=== PATIENT | female | born 1995 | race Caucasian/White ===

== ENCOUNTER 2016-07-30 21:29 | Inpatient (IN) ==
[2016-07-30 22:01] LABS: URINE SOURCE CLEAN CATCH
[2016-07-30 22:28] LABS: MANUAL DIFF NEEDED? NO
[2016-07-30 22:32] LABS: BASO% 0.1 % (0.0-0.8); EOS# 0.09 X1000 (0.0-0.7); EOS% 0.5 % (0.0-10.0); HEMATOCRIT 42.2 % (37.0-47.0); HEMOGLOBIN 14.2 g/dL (12.0-16.0); IMM GRAN# 0.05 X1000 (0.0-0.04); IMM GRAN% 0.3 % (0.0-0.5); LYMPH# 2.06 X1000 (1.2-3.4); LYMPH% 11.6 % (20.5-51.1); MCH 29.6 PG (27-31); MCHC 33.6 g/dL (33-37); MCV 88.1 FL (81-99); MONO# 1.05 X1000 (0.11-0.59); MONO% 5.9 % (1.7-9.3); MPV 10.2 FL (7.4-10.4); NEUT% 81.6 % (42.2-75.2); PLT 383 X1000 (130-400); RBC 4.79 XMIL (4.2-5.4)
[2016-07-30 22:35] LABS: URINE MICRO REVIEW NEEDED? YES
[2016-07-30 22:45] LABS: BILIRUBIN URINE SMALL (NEGATIVE); BLOOD URINE NEGATIVE (NEGATIVE); COLOR YELLOW; GLUCOSE URINE NEGATIVE (NEGATIVE); LEUKOCYTES URINE NEGATIVE (NEGATIVE); NITRITE URINE NEGATIVE (NEGATIVE); PH URINE 6.5; PROTEIN URINE 100 mg/dL (NEGATIVE); TURBIDITY URINE HAZY (CLEAR); UR EPITHELIAL CELLS >10 /HPF (<10); URINE BACTERIA 1+ /HPF; URINE RBC <10 /HPF (<10); URINE WBC <10 /HPF (<10); UROBILINOGEN URINE 8 mg/dL (NORMAL)
[2016-07-30 22:47] LABS: URINE CASTS NONE SEEN; URINE CRYSTALS CA OXALATE PRESENT; URINE CULTURE NEEDED? YES; URINE SMALL ROUND CELLS NONE SEEN
[2016-07-30 22:52] LABS: AGAP 10; ALBUMIN 4.5 g/dL (3.5-5.0); ALKALINE PHOSPHATASE 55 U/L (32-104); AMYLASE 38 U/L (20-200); BUN 11 mg/dL (8-22); CALCIUM 9.2 mg/dL (8.8-10.2); CHLORIDE 100 mmol/L (98-107); COSMO 274; GOT 17 U/L (10-30); GPT 10 U/L (10-36); LIPASE 21 U/L (13-60); SODIUM 138 mmol/L (136-145); TCO2 28 mmol/L (25-35); TOTAL BILIRUBIN 0.37 mg/dL (0.20-1.00)
[2016-07-30 23:09] LABS: SP GRAVITY URINE > 1.030
[2016-07-31] MEDS ORDERED: ZOFRAN IV PRN (00:32)
[2016-07-31] MEDS: MORPHINE IV PRN ×2 (02:49→10:35)
--- NOTE | 2016-07-31 07:37 | Diag Imaging Result Document ---
PROCEDURE NAME: CT ABD/PELVIS W/ IV CONT ONLY - 07/30/2016 CT ABDOMEN AND PELVIS WITH INTRAVENOUS CONTRAST: A CT dose reduction protocol was used. COMPARISON: None. FINDINGS: The lung bases are clear and the heart size is normal. The liver, gallbladder, spleen, pancreas, adrenals, and kidneys are normal. The vermiform appendix measures 6.2 mm which is grossly normal. No inflammatory changes. Urinary bladder, uterus, and rectum are normal. Bony structures are intact. IMPRESSION: Negative exam. MTDD
--- NOTE | 2016-07-31 07:39 | HISTORY AND PHYSICAL ---
HISTORY OF PRESENT ILLNESS: Ms. Cyndy Michel is a 21-year-old, white female who presented to our emergency department last night with a 24-48 hour history of abdominal pain which is localized to her right lower quadrant. The pain became more severe and that caused her to present to the emergency department for further evaluation. PAST MEDICAL HISTORY: None. MEDICATIONS: None. ALLERGIES: None. SOCIAL HISTORY: She lives here locally. [place] looking [place] job[place] She [place] no family locally. REVIEW OF SYSTEMS: A 14-point review of systems was performed and was essentially negative. FAMILY HISTORY: Noncontributory. PHYSICAL EXAMINATION: VITAL SIGNS: Her temperature is 98.2 degrees, heart rate 75, blood pressure 100/62, O2 saturation 99%. She is 160 pounds, and is 5 feet 3 inches. GENERAL APPEARANCE: Ms. Michel appears to be a healthy young white female in no acute distress. HEENT: No jaundice. No oral lesions. Satisfactory dentition. No cervical or lymphadenopathy. HEART: Has a regular rate. LUNGS: Clear to auscultation and percussion bilaterally. ABDOMEN: Soft. She has no scars. No evidence of hernia. She is tender in the right lower quadrant. She has right-sided costovertebral tenderness. RECTAL/VAGINAL: Exams not performed. She does have palpable peripheral pulses. No peripheral edema. NEUROLOGICAL: She is alert and oriented x3 and appropriate. DIAGNOSTIC DATA: A CT scan performed during part of her evaluation in the emergency department documented a phlebolith involving her appendix. Her white blood cell count was 17. Electrolytes were within normal limits. IMPRESSION: Acute appendicitis. PLAN: Laparoscopic, possible open appendectomy this morning. I discussed the procedure in detail with the patient at the bedside. She had no family present. We specifically discussed risks of surgery which include bleeding, infection, injury to intra-abdominal contents for trocar placement, removal of a normal appendix, leakage from the appendiceal stump requiring reoperation for drainage of infection, ruptured appendix requiring prolonged hospitalization. She understands the need for surgery and its risks and wants to proceed. cc: Wnedy Young MD
[2016-07-31] MEDS: ZOSYN 3.375 GM/NS 3.375 GM/50 ML IVPB IV SCH ×3 (07:43→21:23)
[2016-07-31] MEDS ORDERED: LR 1,000 ML ONE (07:55)
[2016-07-31] MEDS ORDERED: MARCAINE 0.25% PF/EPI 1:200,000 ONE (07:55)
[2016-07-31] MEDS ORDERED: REGLAN ONE (08:00)
[2016-07-31] MEDS ORDERED: PEPCID ONE (08:00)
--- NOTE | 2016-07-31 09:47 | OPERATIVE NOTE ---
PROCEDURE DATE: 07/31/2016 DATE OF OPERATION: 07/31/2016. PREOPERATIVE DIAGNOSIS: Acute appendicitis. POSTOPERATIVE DIAGNOSIS: Acute appendicitis. PRINCIPAL PROCEDURE: Laparoscopic appendectomy. SURGEON: Wendy Young MD SCREEN ROLLER: Donald Carbajal RN. ANESTHESIA: General, in addition to local anesthetic. ESTIMATED BLOOD LOSS: 20 mL. DRAINS: None. INDICATIONS: Ms Cyndy Michel is a 21-year-old, white female, who had a 24 hour history of abdominal pain localizing to her right lower quadrant. She was evaluated in our emergency department during the night, which included a CT scan of her abdomen and pelvis which suggested acute appendicitis, as did her exam. She was admitted to my service and this morning we recommended appendectomy. FINDINGS: Her appendix was acutely inflamed without evidence of rupture. The liver appeared to be healthy. The uterus was healthy. Both ovaries appeared to be healthy. No other intra- abdominal pathology was noted. We felt we did the operation safely. DESCRIPTION OF PROCEDURE: The patient was brought to the operating room, placed supine, received general anesthesia, and was intubated. She received IV Zosyn. Amezcua catheter tube was placed. Her abdomen was prepped and draped within a sterile field. We made a small incision below the umbilicus with a 15 blade scalpel. Veress needle was introduced through this incision into the abdomen. Pneumoperitoneum was established, and then the needle was removed. We used step trocars. We placed 11 mm step trocar through this incision into the abdomen. The camera was placed through this port, and the abdomen was explored for injury. There was none. We placed 2 other trocars under direct vision of the camera. These were step trocars. We placed a 12 mm step trocar suprapubic area midline and a 5 mm step trocar in the right lower quadrant of the abdomen. The camera was at the umbilical port. We used a grasper and dissector at our lower port sites, and we easily identified the appendix which was acutely inflamed, we mobilized it with spatula cautery and then blunt dissection at the appendiceal mesentery. We came across the appendiceal mesentery and its vessels with an Endo-YUMI stapler gold load 30 mm in length. We used a reload of the stapler to come across the base of the appendix. An endobag was used to remove the appendix through our 12 mm port site. We placed the trocar back through this site, and the area of operation was thoroughly inspected, irrigated, and the irrigation was removed with suction. We were happy with our appendiceal stump staple line. There was no evidence of ongoing bleeding. We felt we did the operation safely. No drains were left. All trocars removed under direct vision of the camera. The pneumoperitoneum was allowed to dissipate. We used [id number] 2-0 Vicryl stitches to reapproximate the fascia below the umbilicus and also in the suprapubic area. The skin was closed by Donald Carbajal RN, using 4-0 Monocryl subcuticular stitches. Dressings were applied. Plans are to remove her Amezcua. She will go the recovery room and then be readmitted to the floor. cc: Wendy Young MD
[2016-07-31] MEDS ORDERED: DEMEROL ONE (10:01)
[2016-07-31] MEDS ORDERED: DIPRIVAN 1% ONE (10:02)
[2016-07-31] MEDS ORDERED: FENTANYL ONE (10:02)
[2016-07-31] MEDS ORDERED: VERSED ONE (10:02)
[2016-07-31] MEDS ORDERED: NEOSTIGMINE ONE (10:06)
[2016-07-31] MEDS ORDERED: EXTENSION SET 32 IN 4522 ONE (10:07)
[2016-07-31] MEDS ORDERED: XYLOCAINE-MPF 2% ONE (10:07)
[2016-07-31] MEDS ORDERED: QUELICIN (DOSE) ONE (10:07)
[2016-07-31] MEDS ORDERED: LR 3,000 ML ONE (10:07)
[2016-07-31] MEDS ORDERED: ROBINUL ONE (10:07)
[2016-07-31] MEDS ORDERED: ENLON ONE (10:07)
[2016-07-31] MEDS ORDERED: ANESTHESIA PB SET 88 IN 5742 ONE (10:07)
[2016-07-31] MEDS ORDERED: ZOFRAN ONE (10:07)
[2016-07-31] MEDS ORDERED: ZEMURON ONE (10:07)
[2016-07-31] MEDS ORDERED: DECADRON ONE (10:07)
[2016-07-31] MEDS: LR 1,000 ML IV SCH ×2 (10:36→21:23)
[2016-07-31] MEDS ORDERED: SODIUM CHLORIDE 0.9% INJ PRN (12:06)
[2016-07-31] MEDS ORDERED: MORPHINE IV PRN (12:06)
[2016-07-31] MEDS ORDERED: TYLENOL PO PRN (12:06)
[2016-07-31] MEDS ORDERED: PHENERGAN IV PRN (12:07)
[2016-07-31] MEDS: NORCO-7.5 PO PRN (13:21)
[2016-07-31] MEDS: PERIDEX MT SCH (21:29)
[2016-08-01] MEDS: ZOSYN 3.375 GM/NS 3.375 GM/50 ML IVPB IV SCH ×2 (04:00→08:52)
[2016-08-01] MEDS: PERIDEX MT SCH (08:52)
[2016-08-01] MEDS: NORCO-7.5 PO PRN (08:52)
[2016-08-01 12:22] VITALS: BP 102/55
--- NOTE | 2016-08-01 22:07 | DISCHARGE SUMMARY ---
ADMISSION DATE: 07/31/2016 DISCHARGE DATE: 08/01/2016 ADMITTING DIAGNOSIS: Acute appendicitis. DISCHARGE DIAGNOSIS: Acute appendicitis. PRINCIPAL PROCEDURE: Laparoscopic appendectomy on 07/31/2016. DISCHARGE DISABILITY: Full. DISCHARGE DISPOSITION: She will return to our outpatient office in a week. DISCHARGE DIET: Regular. DISCHARGE MEDICATIONS: [place] 7.5 p.r.n. pain. HOSPITAL COURSE: Cyndy Michel is a 21-year-old, white female who presented to our emergency department with abdominal pain which is localized to her right lower quadrant. Part of her evaluation in the emergency department was CT scan of her abdomen and pelvis which suggested acute appendicitis as did her history and physical examination. During the loss prevention supervisor hours she was admitted to my service for further treatment of her acute appendicitis. Later that morning she underwent a laparoscopic appendectomy for acute appendicitis without evidence of rupture. No drains were left at the time of surgery. She went to the recovery room and then to the floor. On postop day 1, she was moving around her room. She is tolerating liquids. All her incisions were healing well. Her abdomen was soft and she had evidence of bowel activity. [place] she is in [place] without family. It was felt safe to discharge her home with followup in our outpatient office in a week. She knows to contact me with any problems such as fever or increasing abdominal pain. cc: Wendy Young MD
--- NOTE | 2016-08-22 14:16 | PROVIDER DOCUMENTATION ---
This chart was entered by Mechelle Sidhu Scribe, acting as scribe for Gurpreet Ruth MD. HPI-Abdominal Pain/GI Problem - General Chief Complaint: Abdominal Pain Stated Complaint: ABD PAIN Time Seen by Provider: 07/30/16 22:52 Source: patient Allergies/Adverse Reactions: Patient Allergies Allergy/AdvReac Type Severity Reaction Status Date / Time No Known Allergies Allergy Verified 07/31/16 02:35 Home Medications: Home Medication List Medication Instructions Recorded Confirmed Last Taken Type Hydrocodone/APAP 7.5 mg/325 mg 1 each PO Q6H PRN PRN #15 tablet 08/01/16 Unknown Rx [Lynn-7.5] - History of Present Illness-ABD Nature of Presenting Problems: 21 Y/O F presents to ED with ABD pain. Pt states that she has ABD pain, that began last night, starts sharp pain from her epigastric to her vagina. N no Vomiting. Extreme pain RLQ. Abdominal Pain Onset Location: reports: RLQ Pain Radiation: reports: no radiation Quality of Pain: reports: sharp Severity in ED: reports: moderate, severe Onset/Duration: reports: last night Timing: reports: still present Activities at Onset: reports: none Associated Symptoms: reports: nausea. denies: back/neck pain, constipation, diarrhea, fever/chills, vomiting Review of Systems - Adult - REVIEW OF SYSTEMS - ADULT Constitutional: denies: chills, fever Eyes: reports: no symptoms reported Ears, Nose, Mouth & Throat: reports: no symptoms reported Cardiovascular: denies: chest pain Respiratory: denies: cough, shortness of breath Gastrointestinal: reports: abdominal pain, nausea. denies: diarrhea, vomiting Genitourinary: reports: no symptoms reported Musculoskeletal: reports: no symptoms reported Integumentary: reports: no symptoms reported Neurological: denies: dizziness/vertigo, headache/migraines Psychiatric: reports: no symptoms reported Endocrine: reports: no symptoms reported Hematologic/Lymphatic: reports: no symptoms reported Allergic/Immunologic: reports: no symptoms reported All Other Systems: Reviewed and Negative Past History - Adult - PAST MEDICAL HISTORY-ADULT Review of Records: reports: Old Records Reviewed, Nursing Assessment Review, Medications Reviewed, Social history reviewed & non-contributory. - SOCIAL HISTORY Smoking: non-smoker Substance Use: none/never Alcohol Use Frequency: never Living Situation: family Physical Exam-General - PHYSICAL EXAM-ADULT Initial Vital Signs Reviewed: Yes - CONSTITUTIONAL General Appearance: appears well, alert, no apparent distress - EYES Eyes: PERRL/EOMI, pink conjunctivae - HEAD, EARS, NOSE, MOUTH & THROAT HENMT: normocephalic/atraumatic, moist mucous membranes, normal ENT inspection, TMs normal, pharynx normal - NECK Neck: non-tender, full range of motion, supple, normal inspection - RESPIRATORY Respiratory: chest non-tender, lungs clear, normal breath sounds - CARDIOVASCULAR Cardiovascular: normal peripheral pulses, regular rate, rhythm - GASTROINTESTINAL (ABDOMEN) Abdominal Exam: tenderness (RLQ) - LYMPHATIC Lymphatic: no adenopathy - MUSCULOSKELETAL Back Exam: normal inspection, no CVA tenderness, no vertebral tenderness Extremity: normal range of motion, non-tender, normal gait - SKIN Integumentary: normal color, normal turgor, warm/dry - NEUROLOGIC Neurologic: managed care nurse II-XII nml as tested - PSYCHIATRIC Psych/Mental Status: normal mood/affect, normal thought content, normal thought process, oriented x 3 Progress - PLAN OF CARE/RESULTS Progress/Plan/Lab Results: Vital Signs - 8 hr 07/30/16 21:49 Temperature 98.5 F Pulse Rate 103 H Respiratory Rate 14 Blood Pressure 120/64 O2 Sat by Pulse Oximetry 100 Laboratory Results - last 24 hr 07/30/16 07/30/16 07/30/16 21:53 21:53 22:18 WBC RBC Hgb Hct MCV MCH MCHC RDW Std Deviation Plt Count MPV Immature Gran % (Auto) Neut % (Auto) Lymph % (Auto) Wilson % (Auto) Eos % (Auto) Baso % (Auto) Immature Gran # (Auto) Neut # (Auto) Lymph # (Auto) Wilson # (Auto) Eos # (Auto) Baso # (Auto) Sodium 138 Potassium 4.0 Chloride 100 Carbon Dioxide 28 Anion Gap 10 BUN 11 Creatinine 0.8 Estimated GFR/1.73 m2 > 60 BUN/Creatinine Ratio 14 Glucose 86 Calculated Osmolality 274 Calcium 9.2 Total Bilirubin 0.37 AST 17 ALT 10 Alkaline Phosphatase 55 Total Protein 8.0 Albumin 4.5 Globulin 3.5 Albumin/Globulin Ratio 1.3 Amylase 38 Lipase 21 Urine Source CLEAN CATCH Urine Color YELLOW Urine Turbidity HAZY Urine pH 6.5 Ur Specific Cassel > 1.030 Urine Protein 100 A Ur Glucose (Stick) NEGATIVE Ur Ketones (Stick) TRACE A Urine Blood NEGATIVE Urine Nitrite NEGATIVE Urine Bilirubin SMALL A Urobilinogen Dipstick 8 A Urine Leukocytes NEGATIVE Urine WBC (Auto) <10 Urine RBC (Auto) <10 U Epithel Cells (Auto) >10 A Urine Bacteria (Auto) 1+ Urine Crystals CA OXALATE PRESENT Small Round Cells NONE SEEN Urine Casts NONE SEEN Urine Yeast-like Cells NONE SEEN Urine Test NEGATIVE 07/30/16 22:18 WBC 17.75 H RBC 4.79 Hgb 14.2 Hct 42.2 MCV 88.1 MCH 29.6 MCHC 33.6 RDW Std Deviation 13.3 Plt Count 383 MPV 10.2 Immature Gran % (Auto) 0.3 Neut % (Auto) 81.6 H Lymph % (Auto) 11.6 L Wilson % (Auto) 5.9 Eos % (Auto) 0.5 Baso % (Auto) 0.1 Immature Gran # (Auto) 0.05 H Neut # (Auto) 14.48 H Lymph # (Auto) 2.06 Wilson # (Auto) 1.05 H Eos # (Auto) 0.09 Baso # (Auto) 0.02 Sodium Potassium Chloride Carbon Dioxide Anion Gap BUN Creatinine Estimated GFR/1.73 m2 BUN/Creatinine Ratio Glucose Calculated Osmolality Calcium Total Bilirubin AST ALT Alkaline Phosphatase Total Protein Albumin Globulin Albumin/Globulin Ratio Amylase Lipase Urine Source Urine Color Urine Turbidity Urine pH Ur Specific Cassel Urine Protein Ur Glucose (Stick) Ur Ketones (Stick) Urine Blood Urine Nitrite Urine Bilirubin Urobilinogen Dipstick Urine Leukocytes Urine WBC (Auto) Urine RBC (Auto) U Epithel Cells (Auto) Urine Bacteria (Auto) Urine Crystals Small Round Cells Urine Casts Urine Yeast-like Cells Urine Test Orders Category Date Time Status NPO Diet 07/30/16 21:51 Active AMYLASE [CHEM] Stat Lab 07/30/16 22:18 Completed CBC WITH ELECTRONIC DIFF [HEME] Stat Lab 07/30/16 22:18 Completed COMPREHENSIVE METABOLIC PANEL [CHEM] Stat Lab 07/30/16 22:18 Completed LIPASE [CHEM] Stat Lab 07/30/16 22:18 Completed TEST-URINE [PREG] Stat Lab 07/30/16 21:53 Completed URINALYSIS W/POSS RFLX CULT-1 [URINALYSIS] Stat Lab 07/30/16 21:53 Completed URINE CULTURE [RM] Routine Lab 07/30/16 22:48 Received URINE MANUAL MICROSCOPIC [URINALYSIS] Stat Lab 07/30/16 21:53 Completed Result Diagrams: 07/30/16 22:18 07/30/16 22:18 - CT/MRI 1 CT Study: Abdomen Impression: Abnormal CT Results: POSSIBLE APPENDICITIS - CONSULTS/PCP/HOSPITALIST Notification #1 *Consult/PCP/Hospitalist*: Dr. Young Time Discussed: 00:31 Reason/Comments: Plan of Care Consult Disposition: Admit (Admit Accepted will see in morning, admit to Dr. Young.) Departure - Departure Date of Disposition Decision: 07/30/16 Time of Disposition Decision: 23:50 DIAGNOSIS: Acute appendicitis Qualifiers: Acute appendicitis type: unspecified acute appendicitis type Qualified Code(s) : K35.80 - Unspecified acute appendicitis Disposition: ADMITTED INPATIENT 09 Certified Medical Emergency: Emergent Condition: Stable - Critical Care Note This patient required my direct & personal management of CC.: No This chart was documented by the indicated scribe, (Mechelle Sidhu Scribe) and accurately reflects the services I performed and decisions made by me, Gurpreet Ruth MD, as attested by the provider's signature.
== END 2016-08-01 12:42 | disposition home or self-care (01) ==
LOC: 4N 21:29 → ED 21:29 → OBSVTOIN 07-31 00:52
PROVIDERS: ADMIT Surgery; ATTEND Surgery